=== PATIENT | female | born 1935 | race Caucasian/White ===

== ENCOUNTER 2016-07-09 20:28 | Emergency (ER) | payer OTHER, MEDICARE ==
[~2016-07-09] VITALS: Ht 152.4 cm; Wt 55.3 kg
[2016-07-09 21:26] VITALS: BP 157/82
--- NOTE | 2016-07-09 22:42 | CT SCAN REPORT ---
EXAMINATION: CT HEAD WITHOUT CONTRAST CLINICAL INFORMATION: Head injury following fall from treadmill. Laceration and bruise to the head. COMPARISON: None. TECHNIQUE: Contiguous axial imaging was performed from the skull base to vertex without intravenous administration of contrast. DLP: 529 mGy-cm FINDINGS: Noncontrast CT imaging of the brain demonstrates age-appropriate generalized parenchymal volume loss with proportional prominence of the sulci and ventricles. There is no acute intracranial hemorrhage, mass or mass effect or abnormal extra-axial fluid collections. There are no focal areas of hypoattenuation in a vascular distribution to suggest acute transcortical ischemia. Areas of hypoattenuation within the periventricular and deep cortical white matter are nonspecific but could reflect sequela of mild chronic microvascular ischemia. No acute calvarial abnormality. The mastoid air cells and visualized portions of the paranasal sinuses are well-aerated. IMPRESSION: 1. No acute intracranial abnormality. 2. Generalized parenchymal volume loss and sequela of mild chronic microvascular ischemia.
--- NOTE | 2016-07-09 22:55 | ED HEAD/FACIAL INJ COMPLAINT ---
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 PT STATES SHE THOUGHT SHE WAS TURNING THE KNOB TO SHUT IT OFF AND INSTEAD INCREASED THE SPEED. DENIES LOC/N/V IS CURRENT WITH TETANUS Triage Nurses Notes Reviewed? yes Onset: Just prior to arrival Severity: moderate Severity Numbers: 6 Location: frontal Method of Injury: direct blow, fall Loss of Consciousness: no loss of consciousness HPI: Patient is an 81-year-old female presenting to the emergency Department chief complaint of head injury about 2 hours prior to arrival. She was on a treadmill when she accidentally turned up to speed and fell off the treadmill. She hit her head. No loss of consciousness. Denies any visual changes. No nausea vomiting fevers or chills. Denies any neck pain or back pain. Denies any extremity pain. She does know that she got abrasion over the left hand. Up-to- date with tetanus immunization. No numbness or tingling. (KARIN PANCHAL) Past History Travel History Traveled to [place] past 21 day No Medical History Any Pertinent Medical History? see below for history Cardiovascular: hypertension Psychiatric: anxiety Surgical History Surgical History: non-contributory Psychosocial History What is your primary language Ghanaian Tobacco Use: Quit >30 days ago Family History Hx Contributory? No (KARIN PANCHAL) Review of Systems Review of Systems Constitutional: Reports: no symptoms. Comments Review of systems: See HPI, All other systems negative. Constitutional, no chills fever or weight loss HEENT: No visual changes no sore throat no congestion Cardiovascular: No chest pain ,palpitation Skin, no jaundice no rashes Respiratory: No dyspnea cough sputum or hemoptysis GI: No nausea no vomiting : No dysuria No hematuria Muscle skeletal: no back pain, no neck pain, Neurologic: No numbness no confusion Psych: No stress anxiety or depression,. Heme/endocrine: No bruising no bleeding no polyuria or polydipsia Immunology: No splenectomy or history of AIDS (KARIN PANCHAL) Physical Exam Physical Exam General Appearance: well developed/nourished, no apparent distress, alert, awake , comfortable Cranial Nerves: CN 2-12 INTACT Comments: Well-developed well-nourished person in no acute distress HEENT: Normal EENT exam, extraocular motion intact, no nystagmus. Pupils equally round and reactive to light and accommodation. Nose is atraumatic. External auditory canal and Tympanic membranes clear. Pharynx normal. No swelling or edema. Superficial abrasion above left eyebrow approximately 2.5 cm in size. Neck: Supple, no lymphadenopathy, normal range of motion without pain or tenderness, NO C-SPINE TENDERNESS. Back: Nontender, no CVA tenderness. Full range of motion Cardiovascular: Regular rate and rhythms no murmurs rubs or gallops, normal JVP Respiratory: Chest nontender. No respiratory distress.breath sounds clear to auscultation bilaterally Extremity: No edema, no calf tenderness to palpation, normal and equal pulses. Muscular strength is 5 out of 5 in all extremities. Full range of motion of hands, wrists without difficulty or pain. Neuro: Alert oriented x3, motor sensory normal, cranial nerves II through XII grossly intact. Cerebellar testing unremarkable. Skin: See HEENT exam. Also superficial abrasion approximately 1 cm in size noted on the left fifth metacarpal. Psych: Mood and affect is normal, memory and judgment is normal. (KARIN PANCHAL) Progress Differential Diagnosis: ICH, orbit fracture, skull fracture, ABRASION, CONTUSION , LACERATION Plan of Care: Patient is well-appearing in no acute distress, she is not on any blood thinners , no LOC and neurologically intact on exam. Unlikely intracranial hemorrhage, patient does have significant hematoma noted to the left frontal bone, we will assess for intracranial hemorrhage and skull fracture with CAT scan. Patient was informed of CAT scan results. Abrasion is superficial. No need for closure. Patient's abrasion was cleaned, bacitracin placed. She'll follow with her PCP. Diagnostic Imaging: Viewed by Me: CT Scan. Discussed w/RAD: CT Scan. Radiology Impression: PATIENT: PASHA ROCK PRESENT AGE: 81 PATIENT ACCOUNT NO: [id number] : 36 LOCATION: [facility] ORDERING PHYSICIAN: IFEOMA BATRES MD SERVICE DATE: 07/09/16 EXAM TYPE: CAT - CT HEAD WO IV CONTRAST EXAMINATION: CT HEAD WITHOUT CONTRAST CLINICAL INFORMATION: Head injury following fall from treadmill. Laceration and bruise to the head. COMPARISON: None. TECHNIQUE: Contiguous axial imaging was performed from the skull base to vertex without intravenous administration of contrast. DLP: 529 mGy-cm FINDINGS: Noncontrast CT imaging of the brain demonstrates age- appropriate generalized parenchymal volume loss with proportional prominence of the sulci and ventricles. There is no acute intracranial hemorrhage, mass or mass effect or abnormal extra-axial fluid collections. There are no focal areas of hypoattenuation in a vascular distribution to suggest acute transcortical ischemia. Areas of hypoattenuation within the periventricular and deep cortical white matter are nonspecific but could reflect sequela of mild chronic microvascular ischemia. No acute calvarial abnormality. The mastoid air cells and visualized portions of the paranasal sinuses are well-aerated. IMPRESSION: 1. No acute intracranial abnormality. 2. Generalized parenchymal volume loss and sequela of mild chronic microvascular ischemia. DICTATED BY: ISHMAEL TANG MD DATE/TIME DICTATED:07/09/162223 SUPPORT WORKER:FRANCIS DATE/TIME TRANSCRIBED:07/09/162223 (KARIN PANCHAL) Departure Departure Time of Disposition: 2319 Disposition: HOME OR SELF CARE Condition: Stable Clinical Impression Primary Impression: Minor head injury Qualifiers: Encounter type: initial encounter Qualified Code: S00.90XA - Unspecified superficial injury of unspecified part of head, initial encounter Secondary Impressions: Contusion Qualifiers: Encounter type: initial encounter Contusion area: head Contusion of head detail: unspecified part of head Qualified Code: S00.93XA - Contusion of unspecified part of head, initial encounter Referrals: Felicita GREGORY MD (PCP/Family) Additional Instructions: Follow-up with your primary care physician call to make an appointment. Apply ice to affected areas. Take Tylenol [id number] for any aches and pains. Applied bacitracin to abrasions to help with healing and prevent infection. Return for any confusion, visual changes or concerns. Departure Forms: Customer Survey General Discharge Information (KARIN PANCHAL) PA/BUSINESS SERVICES DIRECTOR Co-Sign Statement Statement: ED Attending supervision documentation- x I saw and evaluated the patient. I have also reviewed all the pertinent lab results and diagnostic results. I agree with the findings and the plan of care as documented in the PA's/BUSINESS SERVICES DIRECTOR's documentation. [] I have reviewed the ED Record and agree with the PA's/BUSINESS SERVICES DIRECTOR's documentation. [] Additions or exceptions (if any) to the PAs/BUSINESS SERVICES DIRECTOR's note and plan are summarized below: [] (MEDADRO SCHUSTER,IFEOMA)
== END 2016-07-09 23:26 ==
LOC: ERH 20:28
DX: S09.90XA Unspecified injury of head, initial encounter (principal); S00.93XA Contusion of unspecified part of head, initial encounter; W19.XXXA Unspecified fall, initial encounter; Y92.9 Unspecified place or not applicable; Y93.A1 Activity, exercise machines primarily for cardiorespiratory conditioning